=== PATIENT | male | born 1960 | race African-American/Black ===

== ENCOUNTER 2017-01-21 13:44 | Emergency (ER) | payer OTHER, MEDICAID ==
[2017-01-21] MEDS ORDERED: Haloperidol Lactate 5 mg/mL 1mL Vial ONE (14:20)
[2017-01-21] MEDS: Haloperidol Lactate 5 mg/mL 1mL Vial IVP ONE (14:24)
--- NOTE | 2017-01-21 14:34 | ED Physician Chart ---
Chief Complaint/HPI - Patient Information Date Seen:: 01/21/17 Time Seen:: 14:02 Chief Complaint:: FINGER INJURY History of Present Illness:: THIS IS A 56 YO MALE WHO WAS SENT INTO THIS ER FOR AN EVALUATION OF A FINGER INJURY. HOWEVER, UPON ARRIVAL THE PATIENT BECAME VERY AGITATED WHILE BEING EVALUATED. THE PATIENT HAS A HISTORY OF DIABETES, HYPERTENSION AND MENTAL DISORDER.S HE CANNOT GIVE A REVIEW OF SYSTEMS OR ACCURATE HISTORY. Allergies:: Allergies Allergy/AdvReac Type Severity Reaction Status Date / Time risperidone Allergy Verified 01/21/17 13:50 Vitals:: Vital Signs - 8 hr 01/21/17 13:51 Temp 98.9 F HR 88 RR 16 BP 138/89 O2 Sat % 96 Historian:: Medical Records Review:: Nurse's Note Reviewed Review of Systems - Review of Systems General/Constitutional: No fever, No chills, No weight loss, No weakness, No diaphoresis, No edema, No loss of appetite Skin: No skin lesions, No rash, No bruising Head: No headache, No light-headedness Eyes: No loss of vision, No pain, No diplopia ENT: No earache, No nasal drainage, No sore throat, No tinnitus Neck: No neck pain, No swelling, No thyromegaly, No stiffness, No mass noted Cardio Vascular: No chest pain, No palpitations, No PND, No orthopnea, No edema Pulmonary: No SOB, No cough, No sputum, No wheezing GI: No nausea, No vomiting, No diarrhea, No pain, No melena, No hematochezia, No constipation, No hematemesis G/U: No dysuria, No frequency, No hematuria Musculoskeletal: No bone or joint pain, No back pain, No muscle pain Endocrine: No polyuria, No polydipsia Psychiatric: Prior psych history, No depression, No anxiety, No suicidal ideation Hematopoietic: No bruising, No lymphadenopathy Allergic/Immuno: No urticaria, No angioedema Neurological: No syncope, No focal symptoms, No weakness, No paresthesia, No headache, No seizure, No dizziness, Confusion, No vertigo Past Medical History - Past Medical History Obtainable: Yes Past Medical History: HTN, DM, Dyslipidemia, Dementia Family History: None Social History: Non Smoker, No Alcohol, No Drug Use, Care Facility Surgical History: None Psychiatricy History: Schizophrenia, Bipolar Medication: Reviewed Family Medical History - Family Member Mother History Unknown: Yes Physical Exam - Physical Examination General/Constitutional: Awake, Well-developed, well-nourished, Alert, No distress, GCS 15, Non-toxic appearing, Ambulatory Head: Atraumatic Eyes: Lids, conjuctiva normal, PERRL, EOMI Skin: Nl inspection, No rash, No skin lesions, No ecchymosis, Well hydrated, No lymphadenopathy ENMT: External ears, nose nl, Nasal exam nl, Lips, teeth, gums nl Neck: Nontender, Full ROM w/o pain, No JVD, No nuchal rigidity, No bruit, No mass, No stridor Respiratory: Nl effort/Exclusion, Clear to Auscultation, No Wheeze/Rhonchi/Rales Cardio Vascular: RRR, No murmur, gallop, rubs, NL S1 S2 GI: No tenderness/rebounding/guarding, No organomegaly, No hernia, Normal BS's, Nondistended, No mass/bruits, No McBurney tenderness : No CVA tenderness Extremities: No tenderness or effusion, Full ROM, normal strength in all extremities, No edema, Normal digits & nails Neuro/Psych: Alert/oriented, DTR's symmetric, Normal sensory exam, Normal motor strength, Judgement/insight normal (THIS PATIENT IS AGIGTATED AND COMBATIVE AT TIMES), Mood normal, Normal gait, No focal deficits Misc: normal gait, Normal back, No paraspinal tenderness Labs/Radiology/EKG Results - Lab Results Results: Abnormal Lab Results 01/21/17 14:20 WBC 8.2 RBC 4.83 Hgb 13.5 Hct 41.6 MCV 86.2 MCH 28.0 MCHC Differential 32.5 RDW 13.0 Plt Count 193 MPV 9.9 Neutrophils % 72.9 Lymphocytes % 18.5 L Monocytes % 6.4 Eosinophils % 2.2 Basophils % 0.0 - Radiology Results Results: RIGHT HAND X-RAY = 5TH DISTAL METACARPAL FRACTURE - EKG Interpretations EKG Time:: 13:56 Rate & Rhythm: RATE=91 Sunflower: RIGHT Intervals: NO PVCS NOTED Assessment - Assessment General Assessment: THIS PATIENT SHOULD BE REFERRED TO AN ORTHOPEDIC SURGEON FOR TREATMENT. ED Septic Shock - . Is Septic Shock (SBP<90, OR Lactate>4 mmol\L) present?: No - <6hrs of presentation: Vital Signs: Vital Signs - 8 hr 01/21/17 13:51 Temp 98.9 F HR 88 RR 16 BP 138/89 O2 Sat % 96 Reassessment (Disposition) - Reassessment Reassessment Condition:: Unchanged - Diagnosis Diagnosis:: FRACTURED RIGHT DISTAL 5TH METACARPAL BONE. MENTAL DISORDER. - Aftercare/Follow up Instructions Aftercare/Follow-Up Instructions:: Counseled pt regarding lab results/diagnosis & need follow up, Refer to Discharge Instructions, Counseled pt & family regarding lab results/diagnosis & need follow up - Patient Disposition Discharge/Transfer:: Home Condition at Disposition:: Improved ED Discharge Plan - Patient Disposition Admit/Discharge/Transfer: PT DISCHARGED HOME Condition at Disposition: Improved Instructions: Contusion Accepting Physician: , Primary [Other]
--- NOTE | 2017-01-21 14:41 | Diagnostic Imaging Report ---
Portable chest x-ray HISTORY: Shortness of breath The heart size appears generous. Density noted in the left costophrenic angle region. A small pleural effusion cannot be excluded. No definite focal pulmonary parenchymal processes. IMPRESSION: 1. Suggestion of a degree of cardiomegaly 2. Question small left pleural effusion
[2017-01-21 14:42] LABS: % EOSINOPHILS 2.2 % (0.0-5.0); % LYMPHOCYTES 18.5 % (20.0-50.0); % MONOCYTES 6.4 % (2.0-10.0); % NEUTROPHILS 72.9 % (40.0-80.0); HEMATOCRIT 41.6 % (39.0-49.0); HEMOGLOBIN 13.5 gm/dL (13.2-17.3); MEAN CELL VOLUME 86.2 fl (80-99); MEAN CORPUSCULAR HGB CONC 32.5 pg (28.0-36.0); MEAN PLATELET VOLUME 9.9 fl; PLATELET COUNT 193 Th/cmm (150-400); RED BLOOD COUNT 4.83 Mil/cmm (4.30-5.70); WHITE BLOOD COUNT 8.2 Th/cmm (4.8-10.8)
[2017-01-21 14:54] LABS: INR 1.01 (0.5-1.4); PROTHROMBIN TIME (TEST) 10.5 SECONDS (9.5-11.5)
[2017-01-21 14:59] LABS: ALB/GLOB RATIO 1.4 (1.0-1.8); ALKALINE PHOSPHATASE 85 U/L (34-104); ANION GAP 10.1 (7.0-16.0); BILIRUBIN,TOTAL 0.4 mg/dL (0.3-1.0); BUN - UREA NITROGEN 15 mg/dL (7-25); BUN/CREATININE RATIO 16.7; CALCIUM SERUM 10.2 mg/dL (8.6-10.3); CARBON DIOXIDE 25.9 mEq/L (21.0-31.0); CHLORIDE 104 mEq/L (98-107); CREATININE - SERUM 0.9 mg/dL (0.7-1.3); GLUCOSE 109 mg/dL (70-105); SGOT 19 U/L (13-39); SGPT/ALT 17 U/L (7-52); SODIUM SERUM 136 mEq/L (136-145)
[2017-01-21 15:00] LABS: CHOLESTEROL 111 mg/dL (<200); TRIGLYCERIDES 102 mg/dL (<150)
--- NOTE | 2017-01-22 10:38 | Diagnostic Imaging Report ---
CT scan of the brain without intravenous contrast HISTORY: Stroke, CVA Total DLP equals 697 CTDI equals 38.0 Axial sections were obtained from the base of the skull to the vertex. There is prominence/enlargement of the ventricular system size. Associated enlargement of cerebral sulci and subarachnoid cisterns. Findings are consistent with changes of generalized cerebral atrophy. No acute parenchymal abnormalities. No acute cerebral hemorrhage. No extra-axial masses or abnormal fluid collections. IMPRESSION: 1. No acute abnormalities 2. Cerebral atrophy
--- NOTE | 2017-01-22 10:39 | Diagnostic Imaging Report ---
Right hand (3 views) HISTORY: Pain, trauma The exam demonstrates deformity associated with fracture involving the head of the fifth metacarpal. Questionable callus formation that may reflect a degree of healing. Correlation with the time frame since injury is needed. Narrowing of all DIP and PIP joints. IMPRESSION: 1. Fracture involving the head of the fifth metacarpal (question acute versus subacute). Correlation with timeframe since injury is needed. 2. Osteoarthritis
== END 2017-01-21 16:30 | disposition home or self-care (01) ==
LOC: ER 13:44
DX: S62.317A Displaced fracture of base of fifth metacarpal bone, left hand, initial encounter for closed fracture (principal); I10 Essential (primary) hypertension; E11.9 Type 2 diabetes mellitus without complications; E78.5 Hyperlipidemia, unspecified; F20.9 Schizophrenia, unspecified; F31.9 Bipolar disorder, unspecified; Z88.8 Allergy status to other drugs, medicaments and biological substances; X58.XXXA Exposure to other specified factors, initial encounter; Y93.89 Activity, other specified; Y92.89 Other specified places as the place of occurrence of the external cause; Y99.8 Other external cause status
CPT/HCPCS: 99285; 96374; 96375; 93005; 71010; 73130; 70450; 36415; 84443; 86592; 85025; 85610; 85730; 80053; 80061; 87040 ×2; J2060; J1200; J1630